=== PATIENT | female | born 1925 | race Hispanic/Latino ===

== ENCOUNTER 2016-09-07 13:58 | Emergency (ER) | payer MEDICARE ==
[2016-09-07 15:47] VITALS: BP 139/60
--- NOTE | 2016-09-07 16:42 | Emergency Department Report ---
ED General Adult HPI - General Chief complaint: Syncope Stated complaint: SYNCOPE Time Seen by Provider: 09/07/16 16:22 Source: patient, EMS Mode of arrival: Ambulatory Limitations: No Limitations - History of Present Illness Initial comments: 89-year-old female presents to the emergency department via EMS after his syncopal episode. Per report, the patient had 2 syncopal episodes while standing in line at [employer] that were witnessed by bystanders. Patient denies losing consciousness. She states that she merely started to feel weak. She denies chest pain, shortness of breath, or palpitations. Patient is denying complaints at this time and was to go home there are no other complaints. -: Sudden, This afternoon Severity scale (0 -10): 0 Consistency: now resolved Improves with: none Worsens with: none Associated Symptoms: denies other symptoms Treatments Prior to Arrival: other (IV fluids) - Related Data Previous Rx's Medication Instructions Recorded Last Taken Type Warfarin [Coumadin] 5 mg PO DAILY@1700 #7 tablet 02/15/14 Unknown Rx Allergies Allergy/AdvReac Type Severity Reaction Status Date / Time No Known Allergies Allergy Unverified 02/09/14 21:55 ED Review of Systems ROS: Stated complaint: SYNCOPE Other details as noted in HPI Comment: All other systems reviewed and negative Cardiovascular: syncope (although patient denies) ED Past Medical Hx - Past Medical History Hx HIV: No Additional medical history: pe bilaterally three weeks ago. Patient is denying any medical problems - Surgical History Past Surgical History?: Yes Additional Surgical History: LEFT SHOULDER SURGERY - Family History Family history: no significant - Social History Smoking Status: Never Smoker Substance Use Type: None - Medications Home Medications: Home Medications Medication Instructions Recorded Confirmed Last Taken Type Warfarin [Coumadin] 5 mg PO DAILY@1700 #7 tablet 02/15/14 Unknown Rx ED Physical Exam - General Limitations: No Limitations General appearance: alert, in no apparent distress - Head Head exam: Present: atraumatic, normocephalic - Eye Eye exam: Present: normal appearance, PERRL, EOMI - ENT ENT exam: Present: normal exam, normal orophraynx, mucous membranes moist - Neck Neck exam: Present: normal inspection, full ROM. Absent: tenderness - Respiratory Respiratory exam: Present: normal lung sounds bilaterally. Absent: respiratory distress - Cardiovascular Cardiovascular Exam: Present: regular rate, normal rhythm, normal heart sounds - GI/Abdominal GI/Abdominal exam: Present: soft, normal bowel sounds. Absent: distended, tenderness - Extremities Exam Extremities exam: Present: normal inspection, full ROM. Absent: tenderness - Back Exam Back exam: Present: normal inspection, full ROM. Absent: tenderness - Neurological Exam Neurological exam: Present: alert, oriented X3. Absent: motor sensory deficit - Skin Skin exam: Present: warm, dry, intact ED Course Vital Signs 09/07/16 09/07/16 09/07/16 14:29 14:30 14:41 Temperature Pulse Rate 75 82 Respiratory 21 15 10 L Rate Blood Pressure 139/60 139/60 O2 Sat by Pulse 100 100 Oximetry 09/07/16 09/07/16 09/07/16 14:51 15:00 15:11 Temperature Pulse Rate 75 72 72 Respiratory 11 L 12 13 Rate Blood Pressure 139/60 135/60 135/60 O2 Sat by Pulse 100 100 98 Oximetry 09/07/16 09/07/16 09/07/16 15:21 15:31 15:41 Temperature Pulse Rate Respiratory Rate Blood Pressure 110/61 110/61 110/61 O2 Sat by Pulse 100 100 99 Oximetry 09/07/16 09/07/16 15:43 15:48 Temperature 98.1 F Pulse Rate 70 Respiratory 18 16 Rate Blood Pressure 139/60 O2 Sat by Pulse 100 100 Oximetry ED Medical Decision Making - EKG Data -: EKG Interpreted by [facility] EKG shows normal: sinus rhythm, intervals, QRS complexes, ST-T waves Rate: normal - EKG Data When compared to previous EKG there are: previous EKG unavailable Interpretation: other (left axis deviation) - Medical Decision Making Patient is refusing labs at this time. She states she feels fine and wants to go home. She continues to deny losing consciousness. Initial orthostatic vital signs showed a decrease in blood pressure and increase in heart rate sitting to standing. Nursing stated that the patient's legs became weak when this happened. Patient has received IV fluids and has ambulated in the department without difficulty. Risks and benefits of leaving prior to full evaluation have been discussed with the patient. Patient expresses understanding of these risks and will sign out AGAINST MEDICAL ADVICE. - Differential Diagnosis syncope, occult infection Critical care attestation.: If time is entered above; I have spent that time in minutes in the direct care of this critically ill patient, excluding procedure time. ED Disposition Clinical Impression: Syncope and collapse Disposition: LEFT AGAINST MEDICAL ADVICE Is pt being admited?: No Condition: Stable Instructions: Syncope (ED) Referrals: PRIMARY CARE, [Primary Care Provider] - 3-5 Days Time of Disposition: 16:46
== END 2016-09-07 17:19 | disposition left against medical advice (07) ==
LOC: ED 13:58
DX: R55 Syncope and collapse (principal)
CPT/HCPCS: 93005; 93010; 99284

== ENCOUNTER 2016-11-09 13:21 | Emergency (ER) | payer MEDICARE ==
[2016-11-09 14:34] LABS: Basophils % (Auto) 1.4 % (0.0-1.8); Hematocrit 33.7 % (30.3-42.9); Hemoglobin 11.5 gm/dl (10.1-14.3); Mean Corpuscular HGB Conc 34 % (30-34); Mean Corpuscular Hemoglobin 32 pg (28-32); Mean Corpuscular Volume 94 fl (79-97); Platelet Count 182 K/mm3 (140-440); Red Cell Distribution Width 13.4 % (13.2-15.2); White Blood Count 5.9 K/mm3 (4.5-11.0)
[2016-11-09 14:52] LABS: Albumin 3.3 g/dL (3.9-5); Albumin/Globulin Ratio 1.1 %; Alkaline Phosphatase 70 units/L (35-129); Anion Gap 18 mmol/L; BUN/Creatinine Ratio 11.25; Blood Urea Nitrogen 18 mg/dL (7-17); Calcium 8.7 mg/dL (8.4-10.2); Carbon Dioxide 20 mmol/L (22-30); Chloride 109.9 mmol/L (98-107); Glucose 185 mg/dL (65-100); Potassium 4.3 mmol/L (3.6-5.0); Sodium 144 mmol/L (137-145); Total Protein 6.2 g/dL (6.3-8.2)
[2016-11-09 14:55] LABS: Alanine Aminotransferase < 5 units/L (7-56)
--- NOTE | 2016-11-09 15:35 | Emergency Department Report ---
- General Chief complaint: Syncope Stated complaint: SYNCOPE EPISODE Time Seen by Provider: 11/09/16 15:30 Source: patient, EMS Mode of arrival: Stretcher Limitations: No Limitations - History of Present Illness MD Complaint: generalized weakness -: Gradual Location: generalized Severity: mild Consistency: constant Improves with: none Worsens with: none Associated Symptoms: denies: chest pain, confusion, dark stools, diaphoresis, easy bruising, fever/chills, headaches, loss of appetite, nausea/vomiting, rash , shortness of breath, syncope - Related Data Allergies Allergy/AdvReac Type Severity Reaction Status Date / Time No Known Allergies Allergy Unverified 11/09/16 13:47 ED Review of Systems ROS: Stated complaint: SYNCOPE EPISODE Other details as noted in HPI Comment: All other systems reviewed and negative ED Past Medical Hx - Past Medical History Previous Medical History?: No Hx HIV: No Additional medical history: pe bilaterally three weeks ago. Patient is denying any medical problems - Surgical History Past Surgical History?: No Additional Surgical History: LEFT SHOULDER SURGERY - Social History Smoking Status: Never Smoker Substance Use Type: None ED Physical Exam - General Limitations: No Limitations General appearance: alert, in no apparent distress - Head Head exam: Present: atraumatic, normocephalic - Eye Eye exam: Present: normal appearance - ENT ENT exam: Present: mucous membranes moist - Neck Neck exam: Present: normal inspection - Respiratory Respiratory exam: Present: normal lung sounds bilaterally. Absent: respiratory distress - Cardiovascular Cardiovascular Exam: Present: regular rate, normal rhythm. Absent: systolic murmur, diastolic murmur, rubs, gallop - GI/Abdominal GI/Abdominal exam: Present: soft, normal bowel sounds - Extremities Exam Extremities exam: Present: normal inspection - Back Exam Back exam: Present: normal inspection - Neurological Exam Neurological exam: Present: alert, oriented X3 - Psychiatric Psychiatric exam: Present: normal affect, normal mood - Skin Skin exam: Present: warm, dry, intact, normal color. Absent: rash ED Course Vital Signs 11/09/16 13:48 Temperature 97.9 F ED Medical Decision Making - Lab Data Result diagrams: 11/09/16 13:59 11/09/16 13:59 - EKG Data When compared to previous EKG there are: no significant change Interpretation: no acute changes - Medical Decision Making patient doing well, has no complaints at this time, no chest pain, no sob, better after fluids, Critical care attestation.: If time is entered above; I have spent that time in minutes in the direct care of this critically ill patient, excluding procedure time. ED Disposition Clinical Impression: Dehydration Disposition: DC-01 TO HOME OR SELFCARE Is pt being admited?: No Does the pt Need Aspirin: No Condition: Good Instructions: Dehydration (ED) Referrals: PRIMARY CARE, [Primary Care Provider] - 3-5 Days Time of Disposition: 15:35
[2016-11-09 16:21] VITALS: BP 139/72
== END 2016-11-09 16:22 | disposition home or self-care (01) ==
LOC: ED 13:21
DX: E86.0 Dehydration (principal)
CPT/HCPCS: 36415; 80053; 82140; 83735; 84443; 85025; 93005; 93010; 99284; G0480; 80320